=== PATIENT | male | born 1990 | race Caucasian/White ===

== ENCOUNTER 2022-09-15 05:35 | Outpatient (CLI) | payer SELFPAY | END 2022-09-15 05:36 | disposition home or self-care (01) | PROVIDERS: Visit Provider Family Medicine | DX: S69.90XA Unspecified injury of unspecified wrist, hand and finger(s), initial encounter (principal); V47.0XXA Car driver injured in collision with fixed or stationary object in nontraffic accident, initial encounter; Y92.411 Interstate highway as the place of occurrence of the external cause | CPT/HCPCS: A0998 ==